=== PATIENT | female | born 1980 | race Caucasian/White ===

== ENCOUNTER → 2020-04-20 | Day surgery (SDC) | payer OTHER ==
[~2020-04-20] MED LIST: ADDERALL 20 MG20 MG PO; CERTAGEN1 EACH PO; HCTZ12.5 MG PO; NEXPLANON68 MG SC; PERCOCET 5-3251 EACH PO; PREDNISONE 10MG10 MG PO; PRINIVIL20 MG PO; ZOLOFT 25MG TAB25 MG PO
== END | disposition home or self-care (01) ==
LOC: FAS 09:40
DX: N80.0 Endometriosis of uterus (principal); N84.1 Polyp of cervix uteri; I10 Essential (primary) hypertension; D69.3 Immune thrombocytopenic purpura; F90.9 Attention-deficit hyperactivity disorder, unspecified type; F17.200 Nicotine dependence, unspecified, uncomplicated; Z91.018 Allergy to other foods
CPT/HCPCS: 36415; 80048; 84703; 85049; 85610; 85730; J2250; J2405; J2704; J3010; J7120

== ENCOUNTER 2021-08-22 12:43 | Emergency (ER) | payer OTHER | END 2021-08-22 14:47 | disposition home or self-care (01) | LOC: FER 12:43 | DX: T17.998A Other foreign object in respiratory tract, part unspecified causing other injury, initial encounter (principal); Z28.310 Unvaccinated for COVID-19; Z87.09 Personal history of other diseases of the respiratory system | CPT/HCPCS: J0561 ==